=== PATIENT | female | born 1980 | race Hispanic/Latino ===

== ENCOUNTER 2021-03-29 03:47 | Emergency (ER) | payer OTHER ==
[~2021-03-29] VITALS: Ht 172.7 cm; Wt 88.0 kg
[2021-03-29] MEDS ORDERED: ACETAMINOPHEN 325 MG TAB PO ONE (04:15)
[2021-03-29] MEDS ORDERED: ACETAMINOPHEN 325 MG TAB ONE (04:54)
[2021-03-29] MEDS ORDERED: CEFDINIR300 MG PO (07:28)
== END 2021-03-29 07:35 | disposition home or self-care (01) ==
LOC: FSED 04:12
DX: O00.90 Unspecified ectopic pregnancy without intrauterine pregnancy (principal); R10.2 Pelvic and perineal pain
CPT/HCPCS: 76801; 80048; 81003; 81025; 85025; 99283